=== PATIENT | male | born 1950 | race Caucasian/White ===

== ENCOUNTER 2016-06-15 22:44 | Emergency (ER) | payer MEDICARE, OTHER | END 2016-06-16 00:48 | disposition home or self-care (01) | LOC: ER 22:44 | DX: R33.0 Drug induced retention of urine (principal); N40.1 Benign prostatic hyperplasia with lower urinary tract symptoms | CPT/HCPCS: 51702; 81001 ==

== ENCOUNTER 2016-06-19 00:16 | Emergency (ER) | payer MEDICARE, OTHER | END 2016-06-19 02:36 | disposition home or self-care (01) | LOC: ER 00:16 | DX: N40.1 Benign prostatic hyperplasia with lower urinary tract symptoms (principal); R33.8 Other retention of urine; R33.0 Drug induced retention of urine; Z46.6 Encounter for fitting and adjustment of urinary device; Z98.890 Other specified postprocedural states | CPT/HCPCS: 51702; 81001 ==